=== PATIENT | male | born 1955 | race Caucasian/White ===

== ENCOUNTER 2019-11-05 16:00 | Emergency (ER) | payer BC ==
[2019-11-05] MEDS ORDERED: Sodium Chloride 0.9% 10 ML Syringe FLUSH PRN (16:25)
[2019-11-05] MEDS ORDERED: ceFAZolin 2 GM in Premix Bag 1 BAG IV ONE (16:25)
--- NOTE | 2019-11-05 16:31 | EDM.PDOC ---
ED HPI GENERAL MEDICAL PROBLEM - General Chief Complaint: Laceration Stated Complaint: FINGER TIP LAC Time Seen by Provider: 11/05/19 16:12 Source of Information: Reports: Patient History Limitations: Reports: No Limitations - History of Present Illness INITIAL COMMENTS - FREE TEXT/NARRATIVE: Patient is a 64-year-old male who was sent to the emergency department from the walk-in clinic with complaints of amputation of the distal aspect of the right third and fourth finger, as well as an avulsion of the finger tip pad of the fifth finger. Patient states that he was mowing the lawn and reached his hand down by the blade to try to fix something and the pain hit his hand. He thinks his last tetanus shot was about 10 years ago. - Related Data Allergies Allergy/AdvReac Type Severity Reaction Status Date / Time ciprofloxacin [From Cipro] Allergy Hives Verified 12/22/15 20:58 ciprofloxacin HCl Allergy Hives Verified 12/22/15 20:58 [From Cipro] Past Medical History HEENT History: Reports: Other (See Below) Other HEENT History: Pt wears reading glasses Cardiovascular History: Reports: Hypertension, Other (See Below) Other Cardiovascular History: Pt stated BP elevated when stress at work, but resolves self when Stress level decreases. Pt on no home meds. Respiratory History: Reports: SOB - Past Surgical History GI Surgical History: Reports: Colonoscopy, Other (See Below) Social & Family History - Family History Family Medical History: Noncontributory ED ROS GENERAL - Review of Systems Review Of Systems: Comprehensive ROS is negative, except as noted in HPI. ED EXAM, SKIN/RASH Exam: See Below Exam Limited By: No Limitations General Appearance: Alert, WD/WN, No Apparent Distress Respiratory/Chest: No Respiratory Distress, Lungs Clear, Normal Breath Sounds, No Accessory Muscle Use, Chest Non-Tender Cardiovascular: Normal Peripheral Pulses, Regular Rate, Rhythm, No Edema, No Gallop, No JVD, No Murmur, No Rub Extremities: Other (Amputation of the distal portion of the right third and fourth fingers at the DIP joints. Small amount of tissue remaining at the end of the third digit. 1 cm avulsion to the pad of the distal fifth finger. No exposed bone. Scant bleeding present.) Neurological: Alert, Oriented, CN II-XII Intact, Normal Cognition, Normal Gait, Normal Reflexes, No Motor/Sensory Deficits Psychiatric: Normal Affect, Normal Mood Skin: Warm, Dry, Normal Color, No Rash Course - Vital Signs Last Recorded V/S: Last Vital Signs Temp 97.3 F 11/05/19 16:09 Pulse 87 11/05/19 16:09 Resp 16 11/05/19 16:09 BP 96/68 11/05/19 16:09 Pulse Ox 95 11/05/19 16:09 - Orders/Labs/Meds Orders: Active Orders 24 hr Category Date Time Status Peripheral IV Care [RC] . DIRECTED Care 11/05/19 16:25 Active Vaccines to be Administered [RC] PER UNIT ROUTINE Care 11/05/19 17:00 Active Peripheral IV Insertion Adult [OM.PC] Stat Oth 11/05/19 16:25 Ordered Meds: Medications Discontinued Medications Generic Name Dose Route Start Last Admin Trade Name Freq PRN Reason Stop Dose Admin Diphtheria/Tetanus/Acell Pertussis 0.5 ml 11/05/19 17:00 11/05/19 17:11 Adacel IM 11/05/19 17:01 0.5 ml .ONCE ONE Administration Hydromorphone HCl 0.5 mg 11/05/19 16:57 11/05/19 17:09 Dilaudid IVPUSH 11/05/19 16:58 0.5 mg ONETIME ONE Administration Cefazolin Sodium/Dextrose 2 gm 50 mls @ 100 mls/hr 11/05/19 16:25 11/05/19 16 :47 / Premix IV 11/05/19 16:54 100 mls/hr ONETIME ONE Administration Sodium Chloride 10 ml 11/05/19 16:25 11/05/19 16:50 Saline Flush FLUSH 10 ml ASDIRECTED PRN Administration Keep Vein Open - Re-Assessments/Exams Free Text/Narrative Re-Assessment/Exam: On exam, patient has completely amputated the distal portion of the right third and fourth finger at the level of the DIP joint. We will complete an x-ray of the hand, I ordered Ancef 2 g IV as well as an Adacel. Patient denies the need for pain medications at this time. 11/05/19 1645 X-ray of the right hand shows bleed amputation of the third and fourth digit at the level of the DIP joint. These images have been pushed to [facility] in [place]. Patient is beginning to have some pain in the hand. I have ordered Dilaudid 0.5 mg IV. 11/05/19 1649 Called [facility] in [place] and spoke to on-call orthopedist, Dr. Palacios. He stated that the patient will need to be seen in [place] to have the ends of the fingers closed. He will call back after he is able to check the schedule. 11/05/19 1820 Return call received from Dr. Preciado in [place]. He would like the patient to come to the bone and joint clinic tomorrow morning at 9 AM central time. He is to be n.p.o. after midnight. Recommended that the wound be covered with Xeroform gauze and wrapped. Discussed this plan with the patient and he is in agreement. Offered pain medications to go home with night , however he declined. He states "I can handle a little bit of pain ". His plan is to go to [facility] and stay at his daughter's house until morning. I did emphasize that he should not eat or drink after midnight. Wound was cleansed with sterile saline and CHG soap. Distal end of the fingers was covered in Xeroform gauze and the hand was then wrapped in a roll of gauze. Patient tolerated well. Discharge instructions as documented. Departure - Departure Time of Disposition: 18:22 Disposition: Home, Self-Care 01 Condition: Good Clinical Impression: Finger amputation, traumatic Qualifiers: Encounter type: initial encounter Qualified Code(s): S68.119A - Complete traumatic metacarpophalangeal amputation of unspecified finger, initial encounter - Discharge Information *PRESCRIPTION DRUG MONITORING PROGRAM REVIEWED*: No *COPY OF PRESCRIPTION DRUG MONITORING REPORT IN PATIENT GONZALO: No Instructions: Traumatic Finger Amputation Referrals: PCP,None [Primary Care Provider] - Richard Palacios MD [Ordering Only Provider] - Forms: ED Department Discharge Additional Instructions: You were seen in the emergency department today for injuries to your fingers on your right hand after getting your hand in the lawnmower. While in the emergency department, you received antibiotics through your IV, as well as a tetanus vaccination, and pain medications. We spoke to the orthopedist on-call , Dr. bond with [facility] in [place]. He will see you at 9:00 central time tomorrow morning to perform surgical closure of the wounds. Do not eat or drink anything after midnight. You may use Tylenol or ibuprofen if needed this evening. Elevate the extremity when you are sleeping to help reduce swelling. Since you are going to [facility], if you experience any difficulties prior to your scheduled surgical time tomorrow, you may go to the emergency department at [facility] in [place] and Dr. Palacios is amphibious operations officer for orthopedics in that hospital. Sepsis Event Note - Evaluation Sepsis Screening Result: No Definite Risk - Focused Exam Vital Signs: Vital Signs Temp Pulse Resp BP Pulse Ox 11/05/19 16:09 97.3 F 87 16 96/68 95 Date Exam was Performed: 11/05/19 Time Exam was Performed: 21:20 - My Orders Last 24 Hours: My Active Orders 11/05/19 16:25 Peripheral IV Care [RC] . DIRECTED Peripheral IV Insertion Adult [OM.PC] Stat 11/05/19 17:00 Vaccines to be Administered [RC] PER UNIT ROUTINE - Assessment/Plan Last 24 Hours: My Active Orders 11/05/19 16:25 Peripheral IV Care [RC] . DIRECTED Peripheral IV Insertion Adult [OM.PC] Stat 11/05/19 17:00 Vaccines to be Administered [RC] PER UNIT ROUTINE
[2019-11-05 16:34] VITALS: BP 96/68; PULSE 87
--- NOTE | 2019-11-05 16:55 | CR ---
Right fingers: 3 views of the right fingers were obtained. Comparison: No prior finger or hand study. Fractures are seen within the distal middle phalanx of the 3rd and 4th digits. Amputation is seen of the distal phalanxes of these fingers. Soft tissue amputation is also noted. The 2nd and 5th digits appear unremarkable. Impression: 1. Soft tissue and bony amputations within the distal 3rd and 4th fingers. 2. No proximal abnormality is seen. Diagnostic code #3 This report was dictated in MDT
[2019-11-05] MEDS ORDERED: HYDROmorphone 0.5 MG/0.5 ML Syringe IVPUSH ONE (16:57)
[2019-11-05] MEDS ORDERED: Diphtheria,Pertussis(Acell),Tetanus Vaccine 0.5 ML Syringe IM ONE (17:00)
== END 2019-11-05 18:39 | disposition home or self-care (01) ==
LOC: JD.ED 16:00
DX: S68.622A Partial traumatic transphalangeal amputation of right middle finger, initial encounter (principal); S68.624A Partial traumatic transphalangeal amputation of right ring finger, initial encounter; Z88.1 Allergy status to other antibiotic agents; I10 Essential (primary) hypertension; Z23 Encounter for immunization; W28.XXXA Contact with powered lawn mower, initial encounter
CPT/HCPCS: 73140-26-RT; 73140-RT; 90471; 90715; 96365; 96375; 99283-25; J0690; J1170